=== PATIENT | female | born 1995 | race Caucasian/White ===

== ENCOUNTER 2022-10-13 09:26 | Inpatient (IN) | payer OTHER ==
[~2022-10-13] VITALS: Ht 160 cm; Wt 3.2 kg
[2022-10-13] MEDS ORDERED: PRENATAL + DHA1 EAC1 PO (09:51)
[2022-10-13] MEDS ORDERED: ADULT LOW DOSE81 M1 PO (09:52)
[2022-10-13] MEDS ORDERED: DIALYVITE 800-1 EACH PO (09:53)
[2022-10-17] MEDS ORDERED: SIMETHICONE125 M1 PO (06:50)
[2022-10-17] MEDS ORDERED: IBUPROFEN800 MG PO (06:50)
== END 2022-10-17 12:55 | disposition home or self-care (01) | DRG 788 ==
LOC: OBS/DEL 09:26 → LDR 17:00 → O/R 10-14 15:31 → OB/GYN 10-14 16:55
PROVIDERS: ADMIT Obstetrics & Gynecology; ATTEND Obstetrics & Gynecology
PROC: 4A1HXCZ Monitoring of Products of Conception, Cardiac Rate, External Approach (ICD-10-PCS; 2022-10-13)
PROC: BY4FZZZ Ultrasonography of Third Trimester, Single Fetus (ICD-10-PCS; 2022-10-13)
PROC: 10D00Z1 Extraction of Products of Conception, Low, Open Approach (ICD-10-PCS; principal; 2022-10-14 14:00)
DX: O62.1 Secondary uterine inertia (principal); O36.8130 Decreased fetal movements, third trimester, not applicable or unspecified; O48.0 Post-term pregnancy; O26.843 Uterine size-date discrepancy, third trimester; Z3A.40 40 weeks gestation of pregnancy; Z37.0 Single live birth; Z20.822 Contact with and (suspected) exposure to COVID-19